=== PATIENT | female | born 1945 | race Caucasian/White ===

== ENCOUNTER 2018-06-16 02:29 | Emergency (ER) | payer MEDICARE, OTHER ==
--- OUTSIDE RECORDS SUMMARY | 2018-06-16 02:45 | XMS REPORT ---
:1945 External Reference #:[id number] Author Organization [employer] [facility] Address [address] [place] [address] Phone [phone] Care Team Providers Name Role Phone Rossy Pavon M.D. Primary Care Physician Unavailable Payers Type Date Identification Numbers Payment Provider Subscriber Medicare Primary Policy Number: [id number] Medicare - NGS Paige Sanz PayID: [id number] [address] [place] [address] Commercial Policy Number: [id number] [employer] Paige Sanz PayID: [id number] [address] [place] [address] Problems Date Description Provider Status Onset: H/O: hypertension Active Onset: 12/19/2016 Blepharitis Corin Smith O.D. Active Onset: 12/19/2016 Internal hordeolum Corin Smith O.D. Active Onset: 12/19/2016 Bilateral age-related nonexudative Corin Smith O.D. Active macular degeneration Onset: 01/16/2017 Tear film insufficiency Corin Smith O.D. Active Onset: Hypercholesterolemia Active Onset: 03/13/2018 Chalazion Dejon Winkler M.D. Active Onset: 03/13/2018 Cyst of eyelid Dejon Winkler M.D. Active Onset: 02/20/2018 Bilateral primary open angle glaucoma Corin Smith O.D. 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 Cigarette Use Never Smoked Cigarettes ETOH Use Consumes 1 glass of wine per day Recreational Drug Use Denies Drug Use Smoking Patient has never smoked Daily Caffeine Consumes on average 1 cup of hot tea per day Daily Caffeine Consumes on average 1 cup of regular coffee on weekends per day Allergies, Adverse Reactions, Alerts Date Description Reaction Status Severity Comments 01/16/2017 Penicillin active 01/16/2017 Sulfa Antibiotics active 01/16/2017 Avapro active 02/27/2018 Latanoprost active 12/19/2016 NKDA inactive Medications Medication Date Status Form Strength Qnty SIG Indications Ordering Provider Neomycin/Polymyxin 03/13 Active Ointment 3.5-29865 3.500 apply a H00.14 Dejon /Dexamethasone -0.1 gm thin strip Cathi, to the left M.D. eye at night for 2 weeks, then discontinue Atenolol 00 Active Tablets 50mg Unknown /0000 Hydrochlorothiazid 0000 Active Tablets 25mg Unknown e /0000 Lisinopril 0000 Active Tablets 20mg Unknown /0000 Vitamin D-1000 00 Active Tablets 1000Unit 1 daily Unknown Maximum Strength /0000 Aspirin Adult Low 00 Active Tablets 81mg daily Unknown Dose /0000 DR Pravastatin Sodium 0000 Active Tablets 10mg Unknown /0000 Preservision Areds Active Capsules Areds 2 1 x per day Unknown 2 Restasis Multidose 02/20 Hx Emulsion 0.05% 16.5m instill 1 H04.123 . l drop twice [place], - a day both O.D. 03/12 eyes Latanoprost 02/20 Hx Solution 0.005% 15ml 1 drop both H40.1131 . eyes every [place], - night O.D. 02/26 Systane 01/15 Hx Solution 0.4-0.3% as needed Unknown /2016 - 03/12 Erythromycin 12/19 Hx Ointment 5mg/GM 1Tube apply thin H01.001 Corin Juarez s strip to Luis, - all four O.D. 07/17 margins every night at bedtime x 4 weeks Systane Overnight Hx Gel 0.3% every night Unknown Therapy Lubricant /0000 at bedtime Eye - 01/15 Results Description No Information Procedures Date CPT Code Description Status 02/27/2018 95751 Est Patient Intermediate Exam Completed 02/20/2018 17648 Scanning Computerized Ophthalmic Diagnostic Imag Completed Posterior Seg On 02/20/2018 00394 Est Patient Comprehensive Exam Completed 01/16/2018 44244 Scanning Computerized Opthalmic Diagnostic Posterior Completed Seg Retina 01/16/2018 69903 Est Patient Comprehensive Exam Completed 01/16/2018 75195 Pachymetry Completed 07/19/2017 07638 Scanning Computerized Opthalmic Diagnostic Posterior Completed Seg Retina 07/19/2017 83617 Est Patient Comprehensive Exam Completed 01/16/2017 77166 Scanning Computerized Opthalmic Diagnostic Posterior Completed Seg Retina 12/19/2016 74543 Est Patient Intermediate Exam Completed 09/07/2014 59608 Est Patient Intermediate Exam Completed 01/07/2013 43174 New Patient Intermediate Exam Completed Encounters Type Date Location Provider CPT E/M Dx Office Visit 03/13/2018 8:00a Jerry Dash MD, Dejon Winkler, 87740 H00.14 pc M.Rufus H02.822 Office Visit 01/16/2017 2:00p Jerry Dash MD, Corin Smith O.D. 00512 H35.3131 pc H04.123 Office Visit 09/11/2014 12:30p Jerry Dash MD, Angelia Landaverde, 87917 373.2 pc O.D. Office Visit 01/21/2013 8:00a Jerry Dash MD, Ayanna Mas O.D. 40960 373.00 pc Plan of Care 03/13/2018 - Dejon Winkler M.D.H00.14 Chalazion left upper eyelidNew Medication:Neomycin/Polymyxin/Dexamethasone 3.5-84312-2.1Comments:Smoking can increase the risk of developing or worsening any eye related disease, as well as affect your overall health. If you are a smoker, we strongly recommend that you quit.If you are not a smoker, we strongly recommend that you do not start. Follow all instructions given by Dr. Winkler. USE WARM COMPRESSES (WASHCLOTH ) FOR 3-5 MINUTES TO BOTH EYES, GENTLY MASSAGE EYE LID WITH WASHCLOTH.I WILL PRESCRIBE AN OINTMENT, USE AT NIGHT BEFORE BED TO THE LEFT EYE. PULL DOWN LOWER EYELID AND APPLY OINTMENT, YOU CAN APPLY IT DIRECTLY TO THE RED SPOT ON LEFT EYELID WELL.Follow up:As scheduled At your next visit, we are not planning to dilate your eyes. However, if you have anychanges in your vision or new symptoms, there are certain situations that require us to dilate your eyes. If Dr. Winkler requests any additional testing, that may require extra time. If you have any questions before your next appointment, please call our office at .H02.822 Cysts of right lower eyelid
--- OUTSIDE RECORDS SUMMARY | 2018-06-16 02:45 | XMS REPORT ---
:1945 External Reference #:[id number] Author Organization [facility] Address [address] [place] [address] Phone [phone] Care Team Providers Name Role Phone Rossy Pavon M.D. Primary Care Physician Unavailable Payers Type Date Identification Numbers Payment Provider Subscriber Medicare Primary Policy Number: [id number] Medicare - NGS Paige Sanz PayID: [id number] [address] [place] [address] Commercial Policy Number: [id number] [employer] [facility] Paige Sanz PayID: [id number] [address] [place] [address] Problems Date Description Provider Status Onset: H/O: [...] bilateral Onset: 07/19/2017 Nuclear senile cataract Corin Smith O.D. 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 Cigarette Use Never [...] Form Strength Qnty SIG Indications Ordering Provider Systane Nighttime 05/28 Active Ointment 3.500 QHS as gm needed Bam Winkler Atenolol Active Tablets 50mg Unknown /0000 Hydrochlorothiazid Active Tablets 25mg Unknown e /0000 Lisinopril 00 Active Tablets 20mg Unknown /0000 Vitamin D-1000 Active Tablets 1000Unit 1 daily Unknown Maximum Strength /0000 Aspirin Adult Low Active Tablets 81mg daily Unknown Dose /0000 Pravastatin Sodium Active Tablets 10mg Unknown /0000 Preservision Areds Active Capsules Areds 2 1 x per day Unknown Metoprolol Active Tablets 25mg Midura, Succinate ER /0000 ER 24HR Brett Kuhn Neomycin/Polymyxin 03/13 Hx Ointment 3.5-93337 3.500 apply a H00.14 Dejon /Dexamethasone -0.1 gm thin strip Cathi - to the left M.D. 03/27 eye at night for 2 weeks, then discontinue Restasis Multidose 02/20 Hx Emulsion 0.05% 16.5m instill 1 H04.123 KSaray l drop twice Luis, - a day both O.D. 03/12 eyes /2017 Latanoprost 02/20 Hx Solution 0.005% 15ml 1 drop both H40.1131 Corin Juarez eyes every Luis, - night O.D. 02/26 Systane 01/15 Hx Solution 0.4-0.3% as needed Unknown /2016 - 03/12 Erythromycin 12/19 Hx Ointment 5mg/GM 1Tube apply thin H01.001 s strip to [place], - all four O.D. 07/17 margins every night at bedtime x 4 weeks Systane Overnight Hx Gel 0.3% every night Unknown Therapy Lubricant /0000 at bedtime Eye - 01/15 Results Description No Information Procedures Date CPT Code Description Status 02/27/2018 16805 Est Patient Intermediate Exam Completed 02/20/2018 93003 Scanning Computerized Ophthalmic Diagnostic Imag Completed Posterior Seg On 02/20/2018 84836 Est Patient Comprehensive Exam Completed 01/16/2018 48980 Scanning Computerized Opthalmic Diagnostic Posterior Completed Seg Retina 01/16/2018 68635 Est Patient Comprehensive Exam Completed 01/16/2018 25185 Pachymetry Completed 07/19/2017 08245 Scanning Computerized Opthalmic Diagnostic Posterior Completed Seg Retina 07/19/2017 51969 Est Patient Comprehensive Exam Completed 01/16/2017 20180 Scanning Computerized Opthalmic Diagnostic Posterior Completed Seg Retina 12/19/2016 54928 Est Patient Intermediate Exam Completed 09/07/2014 42377 Est Patient Intermediate Exam Completed 01/07/2013 22855 New Patient Intermediate Exam Completed Encounters Type Date Location Provider CPT E/M Dx Office Visit 03/13/2018 8:00a Jerry Dash MD, Dejon Winkler, 83937 H00.14 pc M.DSaray H02.822 Office Visit 01/16/2017 2:00p Jerry Dash MD, Corin Smith O.D. 30263 H35.3131 pc H04.123 Office Visit 09/11/2014 12:30p Jerry Dash MD, Angelia Landaverde, 46977 373.2 pc O.D. Office Visit 01/21/2013 8:00a Jerry Dash MD, Ayanna Mas O.D. 63534 373.00 pc Plan of Care 05/29/2018 - Dejon Winkler M.D.H40.1131 Primary open-angle glaucoma, bilateral, mild stageComments:Smoking can increase the risk of developing or worsening any eye related disease, as well as affect your overall health. If you are a smoker, we strongly recommend that you quit.If you are not a smoker, we strongly recommend that you do not start. Your glaucoma is stable at this time.Your eye pressure is within an acceptable range, and your testing does not show any further deterioration at this time. Please continue your treatment.Follow up:6 Month Follow Up DFE, OCT NERVE You can expect to have your eyes dilated at your next visit. If Dr. Winkler orders any additional testing, it may require extra time. We recommend that you bring sunglasses, as dilation drops often make you light sensitive until they wear off. We always recommend youbring someone to drive you home if you are uncomfortable driving with your eyes dilated. If you haveany questions before your next visit, feel free to call our office at .
--- OUTSIDE RECORDS SUMMARY | 2018-06-16 02:45 | XMS REPORT ---
:1945 External Reference #:[id number] Author Organization [facility] Address [address] [place] [address] Phone [phone] Care Team Providers Name Role Phone Rossy Pavon Care Team Information Management Consultant Unavailable Rossy Pavon Primary Care Physician Unavailable Payers Type Date Identification Numbers Payment Provider Subscriber Medicare Primary Effective: Policy Number: Medicare Cecilia Boss 2011 [id number] PayID: [id number] [address] [place] [address] Commercial Effective: 2017 Policy Number: [id number] [facility] [employer] Number: [id number] [address] PayID: [id number] [place] [address] Problems Date Description Provider Status Onset: 11/07/2011 Essential hypertension Monisha Santacruz M.D. Active Onset: 11/07/2011 Hyperlipidemia Monisha Santacruz M.D. Active Onset: 04/10/2012 Impaired fasting glycaemia Monisha Santacruz M.D. Active Onset: 10/22/2012 Benign essential hypertension Rossy Pavon M.D. Active Onset: 10/22/2012 Tear film insufficiency Rossy Pavon M.D. Active Onset: 10/22/2012 Varicose veins of lower extremity Rossy Pavon M.D. Active Onset: 07/27/2015 Type 2 diabetes mellitus Rossy Pavon M.D. Active Onset: 07/27/2015 Vitamin D deficiency Rossy Pavon M.D. Active Onset: 06/14/2018 Onychomycosis Rossy Pavon M.D. Active Family History Date Family Member(s) Problem(s) Comments General No fam hx lung,colon, breast CA. Father due to Auto Accident () - at age 68 Father Hypercholesterolemia Father Hypertension Father Diabetes Mellitus, II Mother due to Alzheimer's () - age 88. Disease Mother Hypertension First Son Good Health First Son [place]. First Daughter Obesity First Daughter lives in [facility]. on Disability. First Brother Hypercholesterolemia First Brother Hypertension First Brother Diabetes Mellitus, II First Sister 76, CVA. HTN, DM. skin cancer. Number of Grandchildren 2: Jackie and Jaun Social History Type Date Description Comments Marital Status Patient is Living Situation Lives with spouse, 19 year old granddaughter lives with them. will be going to college. [employer]. Diet Diet is healthy and well balanced Sleep Typically sleeps 7 hours a night. 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 Current Allergies, Adverse Reactions, Alerts Date Description Reaction Status Severity Comments 08/06/2006 Penicillin active 08/06/2006 Cipro active 08/06/2006 Cephalexin active 08/22/2016 Sulfamethoxazole/Trimethoprim felt sick active 02/20/2017 Macrolides and Ketolides active Medications Medication Date Status Form Strength Qnty SIG Indications Ordering Provider Atenolol 06/14 Active Tablets 50mg 180ta 1 by mouth Rossy Diana /2017 bs twice tea Pavon M.D. Metoprolol 05/04 Active Tablets 25mg 60tab 1 by mouth Brett T. Succinate ER /2017 ER 24HR s bid Bam Camacho Pravastatin 07/04 Active Tablets 10mg 90tab 1 by mouth E78.4 Rajwinder Sodium /2016 s at night. Janeen Salgado Lisinopril 07/05 Active Tablets 20mg 90tab 1 by mouth I10 Rossy Diana s every day Bam Pavon Asa 01/14 Active 81mg PO qod Family /[facility] Areds Two Active 1 po qd Unknown /0000 Vitamin D3 Active Tablets once daily Unknown Metoprolol 08/03 Hx Tablets 50mg 90tab 1/2 tab by Rossy Diana Succinate ER ER 24HR s mouth Librado, - twice M.D. 04/27 Nitrofurantoin 07/04 Hx Capsules 100mg 14cap 1 by mouth N39.0 Rossy Diana Monohyd s twice Librado, - daily M.D. 01/04 Doxycycline 02/20 Hx Capsules 100mg 14cap take one Hyclate s capsule by Alia, - mouth [employer] 04/25 twice a day Phazyme 02/15 Hx Capsules 180mg 60cap 1-2 po s every 8 Alia, - hours prn [employer] 04/25 flat Azithromycin 02/15 Hx Tablets 250mg 6tabs 2 take by mouth Alia, - tabletstod [employer] 02/20 ay, one tab days 2-5 until finished Medrol 02/15 Hx Tablets 4mg 1pack dose-pack as Alia, - instructed [employer] 04/25 Pyridium 09/22 Hx Tablets 100mg 30tab 1 po tid N39.0 s prn Alia, - urinary [employer] 02/14 pain Macrodantin 09/22 Hx Capsules 100mg 10cap 1 by mouth N39.0 Jainne s twice a Alia, - day x 5 [employer] Macrobid 09/22 Hx Capsules 100mg 14cap 1 tab by N39.0 Janine s mouth Alia, - twice a [employer] 02/14 day x 7days Sulfamethoxazole/ 07/11 Hx Tablets 800-160mg 14tab take 1 Trimethoprim s tablet by Alia, - mouth [employer] 08/21 twice a day x 7 days finish all medication Pyridium 07/11 Hx Tablets 100mg 30tab 1 po tid s prn Alia, - urinary [employer] 08/21 pain Clindamycin HCL 06/03 Hx Capsules 300mg 30cap 1 by mouth Rossy L. s three Librado, - times M.D. 07/11 Lisinopril 09/09 Hx Tablets 10mg 90tab Take 1 I10 Rossy L. s Tablet By Librado, - Mouth M.D. 07/05 Every Vitamin D 07/27 Hx Capsules [id number] 12cap take 1 E55.9 Rossy L. (Ergocalciferol) s capsule by Librado, - mouth once M.D. 04/25 weekly 12 weeks. no refills. Hydrochlorothiazi 06/24 Hx Tablets 25mg 90tab take 1 Rossy L. s tablet by Librado, - mouth M.D. 06/14 every (eat a banana daily) Hydrocortisone 03/27 Hx Ointment 2.5% 1unit apply to 692.9 s affected [place], - area twice M.D. 06/24 a day x week then prn Azithromycin 01/06 Hx Tablets 250mg 6tabs 2 tabs by 466.0 Miller Pathak, mouth day M.D. - #1 then 1 03/27 tab by mouth day#2-5 Sulfamethoxazole/ 12/07 Hx Tablets 800-160mg 14tab take 1 599.0 Janine Trimethoprim s tablet by Alia, - mouth [employer] 01/06 twice a day x 7 days finish all medication Avapro 08/25 Hx Tablets 150mg 90tab 1 by mouth Rossy LSaray s every day Eloina Pavon M.DSaray 06/24 Hydrochlorothiazi 08/25 Hx Tablets 12.5mg 100ta 1 by mouth Rossy LSaray bs every day Librado - for fluid M.D. 06/24 Hydrochlorothiazi 07/17 Hx Tablets 25mg 90tab 1 po qd 401.1 Rossy LSaray kim s Eloina Pavon.Rufus 03/27 Avapro 10/23 Hx Tablets 75mg 90tab 1 po qd Rossy LSaray Eloina Cleaning M.D. 08/25 Hydrochlorothiazi 10/22 Hx Capsules 12.5mg 90cap Take One 401.1 Rossy L. s Capsule By Eloina Pavon M.Rufus 07/17 Morning Avapro 07/16 Hx Tablets 300mg 30tab 1 po qd Rossy L. Eloina Cleaning M.D. 10/23 Blood Pressure 07/16 Hx take blood Rossy L. pressure Eloina Pavon 2-3 times M.DSaray 02/27 weekly. Avapro 08/15 Hx Tablets 150mg 90tab 1 tab po Monisha Hooper s qd Eloina Santacruz M.D. 07/16 Atenolol 08/01 Hx Tablets 25mg 90tab take one s tablet by LENCHO Velasquez - mouth once 06/24 daily at bedtime (with 50mg tablet) Folbee 10/04 Hx Tabs 2.5-25-1m 30tab Take One g s Tablet By Eloina Robb M.D. 12/08 Every Ronak Stocking 09/27 Hx 2Pair wear daily Eloina Robb M.D. 12/08 dx: severe varicose veins Avapro 08/06 Hx Tablets 75mg 90tab 2 po q qam Eloina Howell M.D. 08/15 Atenolol 08/06 Hx 1 50mg 90uni 1 po q hs Monisha Hooper Eloina Walsh M.D. 04/12 HCTZ 08/06 Hx 12.5mg 90uni 1 po q am Janine Eloina Calixto M.D. 08/01 Folbee 08/06 Hx Tablets 30tab 1 po qd Janine /2006 Eloina Howell M.D. 10/04 Caltrate 08/06 Hx 600mg 1 PO qd Janine /2006 Eloina Robb M.D. 09/03 Multivitamin 08/06 Hx 0unit 1 PO qd Janine /2006 s Eloina Robb M.D. 12/08 Fish Oil 08/06 Hx 1000mg 1 PO qd Eloina Robb M.D. 01/14 Atenolol 08/06 Hx Tablets 25mg 90tab Take One s Tablet By geoffrey Izquierdo - Mouth Bam 08/01 Morning Atenolol 08/06 Hx Tablets 50mg 180ta take one Rossy Diana ana Pavon - tablet by Bam 01/04 twice daily Womens Daily Hx Tablets Unknown /0000 - 09/03 Immunizations CPT Code Status Date Vaccine Reaction Lot # [id number] Given 09/11/2017 High-Dose, Influenza Virus [id number] Vacccine-fluzone 65 and older 07850 Given 08/22/2016 High-Dose, Influenza Virus [id number] Vacccine-fluzone 65 and older 77847 Given 07/27/2015 Influenza Vac, [place], [place] [address] Given 07/27/2015 Pneumococcal Conjugate Vacc-13 [id number] 87236 Given 08/25/2014 High-Dose, Influenza Virus [id number] Vacccine-fluzone 65 and older 58975 Given 02/27/2014 Tdap Tetanus, W Pertussis [id number] 76833 Given 07/19/2013 Pneumococcal Immunization [id number] Q2037 Given 10/22/2012 Split Influenza Medicare: Fluvirin 83859 Given 10/22/2012 DO Not Use Split Influenza Virus [id number] Vaccine [id number] Given 08/01/2011 Split Influenza Medicare: no reaction noted [id number] Fluzone 91032 Given 08/01/2011 Zostivax no reaction noted [id number] 55601 Given 08/17/2008 DO Not Use Split Influenza Virus [id number] Vaccine Vital Signs Date Vital Result Comment 06/14/2018 BP Systolic 132 mmHg BP Diastolic 70 mmHg Heart Rate 78 /min Body Temperature 98.1 F Height 58.5 inches 4'10.50" Weight 111.00 lb BMI (Body Mass Index) 22.8 kg/m2 01/04/2018 BP Systolic 124 mmHg BP Diastolic 80 mmHg Heart Rate 60 /min Body Temperature 98.4 F Respiratory Rate 16 /min Weight 107.00 lb 09/11/2017 BP Systolic 120 mmHg BP Diastolic 80 mmHg Heart Rate 60 /min Body Temperature 97.9 F Respiratory Rate 18 /min Weight 110.00 lb 07/04/2017 BP Systolic 110 mmHg BP Diastolic 70 mmHg Heart Rate 72 /min Body Temperature 98.8 F Respiratory Rate 18 /min Height 58.5 inches 4'10.50" Weight 105.00 lb BMI (Body Mass Index) 21.6 kg/m2 04/25/2017 BP Systolic 120 mmHg BP Diastolic 80 mmHg Heart Rate 72 /min Body Temperature 98.7 F Respiratory Rate 18 /min Height 58.5 inches 4'10.50" Weight 105.00 lb BMI (Body Mass Index) 21.6 kg/m2 02/15/2017 BP Systolic 162 mmHg BP Diastolic 90 mmHg Heart Rate 78 /min Body Temperature 98.2 F Height 58.5 inches 4'10.50" Weight 107.12 lb BMI (Body Mass Index) 22.0 kg/m2 09/22/2016 BP Systolic 140 mmHg BP Diastolic 82 mmHg Heart Rate 72 /min Body Temperature 98.6 F Respiratory Rate 18 /min Height 58.5 inches 4'10.50" Weight 109.00 lb BMI (Body Mass Index) 22.4 kg/m2 08/22/2016 BP Systolic 130 mmHg BP Diastolic 88 mmHg Heart Rate 66 /min Body Temperature 98.8 F Height 58.5 inches 4'10.50" Weight 109.25 lb BMI (Body Mass Index) 22.4 kg/m2 07/11/2016 BP Systolic 140 mmHg BP Diastolic 90 mmHg Heart Rate 66 /min Body Temperature 97.6 F Respiratory Rate 18 /min Height 58.5 inches 4'10.50" Weight 110.00 lb BMI (Body Mass Index) 22.6 kg/m2 07/05/2016 BP Systolic 164 mmHg BP Diastolic 90 mmHg Heart Rate 68 /min Body Temperature 97.9 F Respiratory Rate 16 /min Height 58.5 inches 4'10.50" Weight 112.00 lb BMI (Body Mass Index) 23.0 kg/m2 06/14/2016 BP Systolic 140 mmHg BP Diastolic 84 mmHg BP Systolic Recheck 180 mmHg BP Diastolic Recheck 100 mmHg Heart Rate 72 /min Body Temperature 98.0 F Respiratory Rate 16 /min Height 58.5 inches 4'10.50" Weight 111.00 lb BMI (Body Mass Index) 22.8 kg/m2 10/14/2015 BP Systolic 138 mmHg BP Diastolic 88 mmHg Heart Rate 68 /min Body Temperature 98.1 F Respiratory Rate 18 /min Height 58.5 inches 4'10.50" Weight 115.00 lb BMI (Body Mass Index) 23.6 kg/m2 09/09/2015 BP Systolic 120 mmHg BP Diastolic 80 mmHg Heart Rate 68 /min Body Temperature 97.9 F Respiratory Rate 18 /min Height 58.5 inches 4'10.50" Weight 114.00 lb BMI (Body Mass Index) 23.4 kg/m2 07/27/2015 BP Systolic 126 mmHg BP Diastolic 80 mmHg Heart Rate 64 /min Body Temperature 97.4 F Respiratory Rate 16 /min Height 58.5 inches 4'10.50" Weight 120.00 lb BMI (Body Mass Index) 24.7 kg/m2 07/08/2015 BP Systolic 158 mmHg BP Diastolic 84 mmHg BP Systolic Recheck 126 mmHg BP Diastolic Recheck 76 mmHg Heart Rate 66 /min Respiratory Rate 16 /min Height 58.5 inches 4'10.50" Weight 119.00 lb BMI (Body Mass Index) 24.4 kg/m2 06/24/2015 BP Systolic 146 mmHg BP Diastolic 74 mmHg Heart Rate 60 /min Body Temperature 97.4 F Respiratory Rate 20 /min Height 58.5 inches 4'10.50" Weight 121.00 lb BMI (Body Mass Index) 24.9 kg/m2 03/27/2015 BP Systolic 156 mmHg BP Diastolic 88 mmHg Heart Rate 66 /min Body Temperature 98.2 F Respiratory Rate 16 /min Height 58.5 inches 4'10.50" Weight 118.50 lb BMI (Body Mass Index) 24.3 kg/m2 01/06/2015 BP Systolic 152 mmHg BP Diastolic 88 mmHg Heart Rate 80 /min Body Temperature 99.9 F Respiratory Rate 20 /min O2 % BldC Oximetry 96 % Height 58.5 inches 4'10.50" Weight 124.00 lb BMI (Body Mass Index) 25.5 kg/m2 12/07/2014 BP Systolic 194 mmHg BP Diastolic 92 mmHg Heart Rate 72 /min Body Temperature 97.8 F Height 58.5 inches 4'10.50" Weight 125.25 lb BMI (Body Mass Index) 25.7 kg/m2 08/25/2014 BP Systolic 120 mmHg BP Diastolic 80 mmHg Heart Rate 68 /min Body Temperature 98.3 F Respiratory Rate 18 /min O2 % BldC Oximetry 58.5 % Height 58.5 inches 4'10.50" Weight 123.00 lb BMI (Body Mass Index) 25.3 kg/m2 06/26/2014 BP Systolic 150 mmHg BP Diastolic 84 mmHg Heart Rate 66 /min Body Temperature 98.3 F Height 58.5 inches 4'10.50" Weight 122.00 lb BMI (Body Mass Index) 25.1 kg/m2 02/27/2014 BP Systolic 160 mmHg BP Diastolic 90 mmHg Heart Rate 60 /min Body Temperature 96.6 F Respiratory Rate 20 /min Height 58.5 inches 4'10.50" Weight 125.00 lb BMI (Body Mass Index) 25.7 kg/m2 07/19/2013 BP Systolic 152 mmHg BP Diastolic 90 mmHg Heart Rate 60 /min Body Temperature 97.9 F Respiratory Rate 16 /min Height 58.75 inches 4'10.75" Weight 126.25 lb BMI (Body Mass Index) 25.7 kg/m2 12/26/2012 BP Systolic 148 mmHg BP Diastolic 90 mmHg Heart Rate 72 /min Height 58.75 inches 4'10.75" Weight 125.00 lb BMI (Body Mass Index) 25.5 kg/m2 10/22/2012 BP Systolic 120 mmHg BP Diastolic 90 mmHg Heart Rate 72 /min Body Temperature 98.2 F Height 58.75 inches 4'10.75" Weight 127.00 lb BMI (Body Mass Index) 25.9 kg/m2 09/03/2012 BP Systolic 176 mmHg BP Diastolic 76 mmHg Heart Rate 66 /min Body Temperature 98.4 F Height 58.75 inches 4'10.75" Weight 132.00 lb BMI (Body Mass Index) 26.9 kg/m2 07/16/2012 BP Systolic 166 mmHg BP Diastolic 92 mmHg Heart Rate 60 /min Body Temperature 98.3 F Height 58.75 inches 4'10.75" Weight 126.00 lb BMI (Body Mass Index) 25.7 kg/m2 04/10/2012 BP Systolic 144 mmHg BP Diastolic 90 mmHg Heart Rate 66 /min Body Temperature 98.8 F Height 58.75 inches 4'10.75" Weight 123.00 lb BMI (Body Mass Index) 25.1 kg/m2 08/15/2011 BP Systolic 150 mmHg BP Diastolic 80 mmHg Heart Rate 62 /min Body Temperature 97.5 F Respiratory Rate 22 /min Height 58.75 inches 4'10.75" Weight 124.00 lb BMI (Body Mass Index) 25.3 kg/m2 08/01/2011 BP Systolic 140 mmHg BP Diastolic 80 mmHg Heart Rate 60 /min Body Temperature 97.7 F Respiratory Rate 20 /min Height 58.75 inches 4'10.75" Weight 120.00 lb BMI (Body Mass Index) 24.4 kg/m2 12/08/2010 BP Systolic 130 mmHg BP Diastolic 90 mmHg Heart Rate 72 /min Body Temperature 97.8 F Respiratory Rate 15 /min Height 58.75 inches 4'10.75" Weight 125.00 lb BMI (Body Mass Index) 25.5 kg/m2 12/08/2009 BP Systolic 150 mmHg BP Diastolic 90 mmHg Heart Rate 66 /min Body Temperature 97.4 F Height 58.75 inches 4'10.75" Weight 123.00 lb BMI (Body Mass Index) 25.1 kg/m2 08/17/2008 BP Systolic 122 mmHg BP Diastolic 82 mmHg Heart Rate 78 /min Respiratory Rate 13 /min Height 58.75 inches 4'10.75" Weight 126.00 lb BMI (Body Mass Index) 25.7 kg/m2 01/11/2008 BP Systolic 142 mmHg BP Diastolic 90 mmHg Heart Rate 60 /min Height 58.75 inches 4'10.75" Weight 121.00 lb BMI (Body Mass Index) 24.6 kg/m2 01/14/2007 BP Systolic 148 mmHg BP Diastolic 80 mmHg Heart Rate 68 /min Body Temperature 97.6 F Height 58.75 inches 4'10.75" Weight 117.00 lb BMI (Body Mass Index) 23.8 kg/m2 10/18/2006 BP Systolic 150 mmHg BP Diastolic 92 mmHg Heart Rate 68 /min Height 58.75 inches 4'10.75" Weight 117.00 lb BMI (Body Mass Index) 23.8 kg/m2 08/06/2006 BP Systolic 142 mmHg BP Diastolic 72 mmHg Heart Rate 76 /min Height 58.75 inches 4'10.75" Weight 113.00 lb BMI (Body Mass Index) 23.0 kg/m2 Results Test Date Test Result H/L Range Note Laboratory test finding 06/14/2018 B12 <pending> 230-1050 Laboratory test finding 06/14/2018 Folates (Folic Acid), <pending> Serum Laboratory test finding 06/14/2018 Hemoglobin A1c (Fma) 5.2% % 4.1-5.7 Laboratory test finding 01/04/2018 Hemoglobin A1c (Fma) 5.3 % 4.1-5.7 Comprehensive Metabolic 09/03/2017 Sodium 137 mEq/L 134-149 Prof Potassium 3.9 mEq/L 3.6-5.5 Chloride 97 mEq/L 94-112 Carbon Dioxide 25 mEq/L 21-32 Glucose 118 mg/dL High 70-105 1 BUN 15 mg/dL 6-26 Creatinine 0.5 mg/dL Low 0.6-1.4 2 BUN/Creat Ratio 30.0 CALC 8.0-36.0 Calcium 9.2 mg/dL 8.6-10.2 Total Protein 7.4 g/dL 6.4-8.3 Albumin 4.5 g/dL 3.8-5.5 Globulin 2.9 g/dL 2.0-4.8 A/G Ratio 1.6 CALC 0.6-2.3 Alk. Phosphatase 39 U/L 30-110 Alt (SGPT) 27 U/L 7-35 Ast (Sgot) 34 U/L 5-34 Total Bilirubin 0.7 mg/dL 0.2-1.3 GFR Non- >60 ml/min/1.73m^ >=60 GFR >60 ml/min/1.73m^ >=60 Lipid Profile 09/03/2017 Cholesterol 207 mg/dL High 120-200 Triglycerides 90 mg/dL 30-200 HDL Cholesterol 67 mg/dL 30-85 LDL (Calculated) 122 CALC 0-129 VLDL Cholesterol 18 mg/dL 0-50 HDL Risk Factor 3.1 CALC 0.0-4.4 Urine Culture Routine 07/04/2017 Urine Culture, Routine Final report 3 , 4 Result 1 Escherichia coli 3, 5 Antimicrobial Susceptibility See Comment: 3, 6 Ua - Micro (Fma) 07/04/2017 Appearance cloudy Color yellow Glucose, Urine (Fma/CMC/CTX) neg Bilirubin neg Ketones neg SP Grav 1.020 Blood mod PH 6.0 Protein ssa=1+ Urobil 0.2 Nitrite neg Leukocytes (Fma/CMC/Centrex) large Hyaline - /Lpf Granular - /Lpf WBC (Fma,Centrex) >100 RBC 10-12 Mucus - /Lpf Epith rare /Lpf Bacteria 2+ /Hpf Amorphous - /Lpf Crystals, Fluid (Fma/CMC/CTX) - Z#Comments - Complete Blood Count 06/27/2017 WBC 6.2 x10^3/UL 3.6-9.6 RBC 5.20 x10^6/UL 3.90-5.70 HGB 15.7 g/dL 12.1-17.2 HCT 47 % 36-50 MCV 89.0 fL 82.2-97.4 MCH 30.2 pg 27.6-33.3 MCHC 33.8 g/dL 33.0-35.5 RDW 14.0 % High 11.6-13.7 PLT 324 x10^3/UL 150-400 MPV 7.1 fL Low 7.4-10.4 Gran # 3.7 x10^3/UL 1.5-7.2 Lymph# 2.1 x10^3/UL 0.7-4.9 Greenlee# 0.4 x10^3/UL 0.1-0.9 Gran % 58.5 % 42.2-75.2 Lymph % 34.8 % 20.5-51.1 Greenlee% 6.7 % 1.7-9.3 Comprehensive Metabolic Prof 06/27/2017 Sodium 133 mEq/L Low 134-149 7 Potassium 4.1 mEq/L 3.6-5.5 Chloride 94 mEq/L 94-112 Carbon Dioxide 24 mEq/L 21-32 Glucose 116 mg/dL High 70-105 BUN 16 mg/dL 6-26 Creatinine 0.5 mg/dL Low 0.6-1.4 8 BUN/Creat Ratio 32.0 CALC 8.0-36.0 Calcium 9.6 mg/dL 8.6-10.2 Total Protein 7.7 g/dL 6.4-8.3 Albumin 4.5 g/dL 3.8-5.5 Globulin 3.2 g/dL 2.0-4.8 A/G Ratio 1.4 CALC 0.6-2.3 Alk. Phosphatase 45 U/L 30-110 Alt (SGPT) 11 U/L 7-35 Ast (Sgot) 21 U/L 5-34 Total Bilirubin 0.9 mg/dL 0.2-1.3 GFR Non- >60 ml/min/1.73m^ >=60 GFR >60 ml/min/1.73m^ >=60 Laboratory test finding 06/27/2017 Hemoglobin A1c (Fma) 5.2 % 4.1-5.7 Laboratory test finding 06/27/2017 TSH 1.94 mIU/L 0.50-6.00 Lipid Profile 06/27/2017 Cholesterol 258 mg/dL High 120-200 Triglycerides 97 mg/dL 30-200 HDL Cholesterol 81 mg/dL 30-85 LDL (Calculated) 158 CALC High 0-129 VLDL Cholesterol 19 mg/dL 0-50 HDL Risk Factor 3.2 CALC 0.0-4.4 Ua - Micro (Fma) 09/22/2016 Appearance clear Color yellow Glucose, Urine (Fma/CMC/CTX) neg Bilirubin neg Ketones neg SP Grav 1.020 Blood moderate PH 6.5 Protein trace: ssa Urobil 0.2 Nitrite positive Leukocytes (Fma/CMC/Centrex) moderate Hyaline - /Lpf Granular - /Lpf WBC (Fma,Centrex) >75 RBC 8-10 Epith few /Lpf Bacteria 1+ /Hpf Urine Culture Routine 09/22/2016 Urine Culture, Routine Final report 9 , 10 Result 1 Escherichia coli 9, 11 Antimicrobial Susceptibility See Comment: 9, 12 Laboratory test finding 07/11/2016 PDF [id number] SEE IMAGE 13 Ua - Micro (Fma) 07/11/2016 Appearance CLEAR Color YELLOW Glucose, Urine (Fma/CMC/CTX) NEG Bilirubin NEG Ketones NEG SP Grav 1.015 Blood MOD PH 7.0 Protein 1+ Urobil 0.2 Nitrite NEG Leukocytes (Fma/CMC/Centrex) MOD Hyaline - /Lpf Granular - /Lpf WBC (Fma,Centrex) 20-25 RBC 3-5 Mucus - /Lpf Epith OCC /Lpf Bacteria 1+ /Hpf Amorphous - /Lpf Crystals, Fluid (Fma/CMC/CTX) - Urine Culture Routine 07/11/2016 Urine Culture, Routine Final report 13 , 14 Result 1 See Comment: 13, 15 Antimicrobial Susceptibility See Comment: 13, 16 Laboratory test finding 06/14/2016 Hemoglobin A1c (Fma) 5.7 % 4.1-5.7 Comprehensive Metabolic Prof 07/14/2015 Sodium 135 mEq/L 134-149 Potassium 3.8 mEq/L 3.6-5.5 Chloride 97 mEq/L 94-112 Carbon Dioxide 31 mEq/L 21-32 Glucose 128 mg/dL High 70-105 BUN 13 mg/dL 6-26 Creatinine 0.6 mg/dL 0.6-1.4 BUN/Creat Ratio 21.7 CALC 8.0-36.0 Calcium 9.3 mg/dL 8.6-10.2 Total Protein 7.2 g/dL 6.4-8.3 Albumin 4.4 g/dL 3.8-5.5 Globulin 2.8 g/dL 2.0-4.8 A/G Ratio 1.6 CALC 0.6-2.3 Alk. Phosphatase 44 U/L 30-110 Alt (SGPT) 9 U/L 7-35 Ast (Sgot) 18 U/L 5-34 Total Bilirubin 0.7 mg/dL 0.2-1.3 GFR Non- >60 ml/min/1.73m^ >=60 GFR >60 ml/min/1.73m^ >=60 Laboratory test finding 07/14/2015 Hemoglobin A1c 5.3 % 4.1-5.7 (Fma/CMC,CX) Lipid Profile 07/14/2015 Cholesterol 238 mg/dL High 120-200 Triglycerides 120 mg/dL 30-200 HDL Cholesterol 65 mg/dL 30-85 LDL (Calculated) 149 CALC High 0-129 VLDL Cholesterol 24 mg/dL 0-50 HDL Risk Factor 3.7 CALC 0.0-4.4 Complete Blood Count 07/14/2015 WBC 5.9 x10^3/UL 3.6-9.6 RBC 4.74 x10^6/UL 3.90-5.70 HGB 14.7 g/dL 12.1-17.2 HCT 43 % 36-50 MCV 91.0 fL 82.2-97.4 MCH 30.9 pg 27.6-33.3 MCHC 34.2 g/dL 33.0-35.5 RDW 13.1 % 11.6-13.7 PLT 309 x10^3/UL 150-400 MPV 6.9 fL Low 7.4-10.4 Gran # 3.8 x10^3/UL 1.5-7.2 Lymph# 1.7 x10^3/UL 0.7-4.9 Greenlee# 0.4 x10^3/UL 0.1-0.9 Gran % 61.9 % 42.2-75.2 Lymph % 29.7 % 20.5-51.1 Greenlee% 8.4 % 1.7-9.3 Laboratory test finding 07/14/2015 Vitamin D25 25 Low 30-100 17 Laboratory test finding 06/24/2015 Free T4 1.20 ng/dL 0.75-1.54 TSH 1.90 mIU/L 0.50-6.00 Ua - Micro ([facility]) 12/07/2014 Appearance CLEAR Color YELLOW Glucose, Urine (a/CMC/CTX) NEG Bilirubin NEG Ketones NEG SP Grav 1.005 Blood SMALL PH 6.0 Protein NEG Urobil 0.2 Nitrite NEG Leukocytes (a/[facility]/Centrex) LARGE WBC ([facility],Centrex) 35-40 RBC 6-7 Bacteria TRACE /Hpf Lipid Profile 05/04/2014 Cholesterol 223 mg/dL High 120-200 Triglycerides 111 mg/dL 30-200 HDL Cholesterol 56 mg/dL 30-85 LDL (Calculated) 145 CALC High 0-129 VLDL Cholesterol 22 mg/dL 0-50 HDL Risk Factor 4.0 CALC 0.0-4.4 Laboratory test finding 05/04/2014 Hemoglobin A1c (a/[facility],CX) 5.6 % 4.1- 5.7 Ua - Micro ([facility]) 02/27/2014 Appearance clear Color yellow Glucose - Bilirubin - Ketones - SP Grav 1.015 Blood Trace-intact PH 6.0 Protein - Urobil 0.2 Nitrite - Leukocytes (a/CMC/Centrex) trace Hyaline - /Lpf Granular - /Lpf WBC (a,Centrex) 1-2 RBC 0-1 Mucus - /Lpf Epith rare /Lpf Bacteria rare /Hpf Amorphous - /Lpf Crystals, Fluid (Fma/CMC/CTX) - Z#Comments - CBC Electronic ([facility]) 07/19/2013 WBC 5.8 3.6-9.6 RBC 4.46 3.90-5.70 Hemoglobin (Fma/CMC/CTX) 13.6 g/dL 12.1 - 17.2 Hematocrit (Fma/CMC/CTX) 40.8 % 36.1 - 50.3 Platelets 240 10^3/ul 150-400 Lymph% 32.4 20.5-51.1 Mixed% 5.9 Neutrophils % 61.7 Mean Corpuscular Vol 91 82.2-97.4 Mean Corpuscular Hemoglobin 30.4 27.6-33.3 Mean Corpuscular Hemo Concen 33.3 32.0-36.0 RDW 13.9 High 11.6-13.7 Mean Platelet Volume 7.2 6.5-11.0 Comprehensive Metabolic Prof 07/19/2013 Albumin 4.6 g/dL 3.8-5.5 Alk. Phos. 39 U/L 30-110 Alt (SGPT) 10 U/L 7-35 Ast (Sgot) 20 U/L 5-34 BUN 20 mg/dL 6-26 Calcium 10.0 mg/dL 8.6-10.2 Chloride 102 mEq/L 94-112 Creatinine 0.7 mg/dL 0.6-1.4 Carbon Dioxide 28 mEq/L 21-32 Glucose 115 mg/dL High 70-105 Sodium 138 mEq/L 134-149 Total Bilirubin 1.0 mg/dL 0.2-1.3 Total Protein 7.5 g/dL 6.3-8.1 Potassium 4.0 mEq/L 3.6-5.5 Globulin 2.9 g/dL 2.0-4.8 A/G Ratio 1.6 Calc 0.6-2.3 BUN/Creat Ratio 26.3 Calc 8.0-36.0 Lipid Profile 07/19/2013 Cholesterol 274 mg/dL High 120-200 HDL 60 mg/dL 30-85 Triglycerides 108 mg/dL 30-200 HDL Risk Factor 4.5 CALC High 0.0-4.4 LDL (Calculated) 192 CALC High 0-129 VLDL (Calculated) 22 mg/dL 0-50 Laboratory test finding 07/19/2013 TSH 1.85 mIU/L 0.50-6.00 Laboratory test finding 07/19/2013 Urine Microalbumin (Fma) <5.0 Hemoglobin A1c (Fma/CMC,CX) 5.7 % 4.1-5.7 Laboratory test finding 12/26/2012 Sed Rate (Fma/CMC/Centrex) 12mm CBC Electronic (a) 12/26/2012 WBC 5.7 3.6-9.6 RBC 4.62 3.90-5.70 Hemoglobin (Fma/CMC/CTX) 14.3 g/dL 12.1 - 17.2 Hematocrit (Fma/CMC/CTX) 41.7 % 36.1 - 50.3 Platelets 252 10^3/ul 150-400 Lymph% 41.2 20.5-51.1 Mixed% 7.2 Neutrophils % 51.6 Mean Corpuscular Vol 90 82.2-97.4 Mean Corpuscular Hemoglobin 30.8 27.6-33.3 Mean Corpuscular Hemo Concen 34.2 32.0-36.0 RDW 12.1 11.6-13.7 Mean Platelet Volume 7.0 6.5-11.0 Marylu Panel--LD (Ctx) 12/26/2012 Antinuclear Abs, Ifa Negative 18 Rheumatoid Arth Factor 9.1 IU/mL 0.0-13.9 Anti Dsdna Antibodies <1 IU/mL 0-9 19 Hla B27 Disease Assoc. Negative 20 Antiextractable Nuclear Ag 12/26/2012 STEAM OVEN OPERATOR Antibodies <0.2 AI 0.0-0.9 Layton Antibodies <0.2 AI 0.0-0.9 Sjogren's AB Anti Ssa/SSB 12/26/2012 Sjogren's Anti-SS-A <0.2 AI 0.0-0.9 Sjogren's Anti-SS-B <0.2 AI 0.0-0.9 Lipid Profile 04/10/2012 Cholesterol 222 mg/dL High 120-200 HDL 67 mg/dL 30-85 Triglycerides 72 mg/dL 30-200 HDL Risk Factor 3.3 CALC 0.0-4.0 LDL (Calculated) 141 CALC High 0-129 VLDL (Calculated) 14 mg/dL 0-50 Comprehensive Metabolic Prof 04/10/2012 Albumin 4.4 g/dL 3.8-5.5 Alk. Phos. 40 U/L 30-110 Alt (SGPT) 11 U/L 7-35 Ast (Sgot) 21 U/L 5-34 BUN 17 mg/dL 6-26 Calcium 9.0 mg/dL 8.6-10.2 Chloride 98 mEq/L 94-112 Creatinine 0.7 mg/dL 0.6-1.4 Carbon Dioxide 26 mEq/L 21-32 Glucose 102 mg/dL 70-105 Sodium 138 mEq/L 134-149 Total Bilirubin 0.8 mg/dL 0.2-1.3 Total Protein 6.8 g/dL 6.3-8.1 Potassium 3.7 mEq/L 3.6-5.5 Globulin 2.4 g/dL 2.0-4.8 A/G Ratio 1.8 Calc 0.6-2.2 BUN/Creat Ratio 25.6 Calc 8.0-36.0 Comprehensive Metabolic Prof 12/29/2010 Albumin 4.5 g/dL 3.8-5.5 Alk. Phos. 39 U/L 30-110 Alt (SGPT) 10 U/L 7-35 Ast (Sgot) 18 U/L 5-34 BUN 24 mg/dL 6-26 Calcium 9.3 mg/dL 8.6-10.2 Chloride 105 mEq/L 94-112 Creatinine 0.7 mg/dL 0.6-1.4 Carbon Dioxide 26 mEq/L 21-32 Glucose 104 mg/dL 70-105 Sodium 140 mEq/L 134-149 Total Bilirubin 0.6 mg/dL 0.2-1.3 Total Protein 6.9 g/dL 6.3-8.1 Potassium 4.1 mEq/L 3.6-5.5 Globulin 2.4 g/dL 2.0-4.8 A/G Ratio 1.9 Calc 0.6-2.2 BUN/Creat Ratio 37.3 Calc High 8.0-36.0 Lipid Profile 12/29/2010 Cholesterol 242 mg/dL High 120-200 HDL 58 mg/dL 30-85 Triglycerides 100 mg/dL 30-200 HDL Risk Factor 4.2 CALC High 0.0-4.0 LDL (Calculated) 164 CALC High 0-129 VLDL (Calculated) 20 mg/dL 0-50 Laboratory test finding 12/29/2010 TSH 2.87 mIU/L 0.50-6.00 CBC Electronic (a) 12/29/2010 WBC 5.4 3.6-9.6 RBC 4.27 3.90-5.70 Hemoglobin (Fma/CMC/CTX) 13.3 g/dL 12.1 - 17.2 Hematocrit (Fma/CMC/CTX) 38.6 % 36.1 - 50.3 Platelets 226 10^3/ul 150-400 Lymph% 32.3 20.5-51.1 Mixed% 5.1 Neutrophils % 62.6 Mean Corpuscular Vol 91 82.2-97.4 Mean Corpuscular Hemoglobin 31.1 27.6-33.3 Mean Corpuscular Hemo Concen 34.4 32.0-36.0 RDW 12.2 11.6-13.7 Mean Platelet Volume 8.5 6.5-11.0 Ua - Micro (Fma) 12/08/2010 Appearance CLEAR Color YELLOW Glucose NEG Bilirubin NEG Ketones NEG SP Grav 1.025 Blood MODERATE PH 5.0 Protein NEG Urobil 0.2 Nitrite NEG Leukocytes (Fma/CMC/Centrex) MODERATE Hyaline - /Lpf Granular - /Lpf WBC (Fma,Centrex) 10-15 RBC 3-5 Mucus - /Lpf Epith OCC /Lpf Bacteria 1+ /Hpf Amorphous - /Lpf Crystals, Fluid (Fma/CMC/CTX) - Z#Comments - Laboratory test 12/08/2010 Thin Prep SEE NOTE 21 finding W/HPV(Lsil/CESILIA/Asc) Laboratory test 12/08/2009 TSH 1.87 mIU/L 0.50-6.0 finding 0 Lipid Profile 12/08/2009 Cholesterol 235 mg/dL High 120-200 22 HDL 70 mg/dL 30-85 Triglycerides 90 mg/dL 30-200 HDL Risk Factor 3.4 CALC Low 4.2-7.0 LDL (Calculated) 147 CALC High 0-129 VLDL (Calculated) 18 mg/dL 0-50 Comprehensive Metabolic Prof 12/08/2009 Albumin 4.7 g/dL 3.8-5.5 Alk. Phos. 39 U/L 30-110 Alt (SGPT) 10 U/L 7-35 Ast (Sgot) 20 U/L 5-34 BUN 19 mg/dL 6-26 Calcium 9.7 mg/dL 8.6-10.2 Chloride 103 mEq/L 94-112 Creatinine 0.7 mg/dL 0.6-1.4 Carbon Dioxide 27 mEq/L 21-32 Glucose 102 mg/dL 70-105 Sodium 141 mEq/L 134-149 Total Bilirubin 0.7 mg/dL 0.2-1.3 Total Protein 7.4 g/dL 6.3-8.1 Potassium 4.1 mEq/L 3.6-5.5 Globulin 2.7 g/dL 2.0-4.8 A/G Ratio 1.7 Calc 0.6-2.2 BUN/Creat Ratio 29.3 Calc 8.0-36.0 Complete Blood Count 12/08/2009 WBC 7.0 x10^3/uL 3.6-9.6 Gran# 5.0 x10^3/uL 1.5-7.2 Gran% 71.8 % 42.2-75.2 HCT 43 % 36-50 HGB 14.9 g/dL 12.1-17.2 Lymph# 1.6 x10^3/uL 0.7-4.9 Lymph% 22.5 % 20.5-51.1 MCH 31.3 pg 27.6-33.3 MCV 90.1 fL 82.2-97.4 MCHC 34.7 g/dL 33.0-35.5 Mo# 0.4 x10^3/uL 0.1-0.9 Mo% 5.7 % 1.7-9.3 MPV 8.7 fL 7.4-10.4 PLT 229 x10^3/uL 150-400 RBC 4.75 x10^6/uL 3.90-5.70 RDW 13.2 % 11.6-13.7 Laboratory test finding 08/17/2008 Thin Prep W/HPV(Lsil/CESILIA/Asc) SEE NOTE 23 Ua - Micro (Fma) 08/17/2008 Appearance CLEAR Color YELLOW Glucose NEG Bilirubin NEG Ketones NEG SP Grav 1.020 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 Phos. 32 U/L 30-110 25 Alt (SGPT) 11 U/L 7-35 25 Ast (Sgot) 22 U/L 5-34 25 BUN 17 mg/dL 6-26 25 Calcium 9.7 mg/dL 8.6-10.2 25 Chloride 98 mEq/L 94-112 25 Creatinine 0.8 mg/dL 0.6-1.4 25 Carbon Dioxide 30 mEq/L 21-32 25 Glucose 108 mg/dL High 70-105 25 Sodium 138 mEq/L 134-149 25 Total Bilirubin 0.8 mg/dL 0.2-1.3 25 Total Protein 7.6 g/dL 6.3-8.1 25 Potassium 4.0 mEq/L 3.6-5.5 25 Globulin 3.3 g/dL 2.0-4.8 25 A/G Ratio 1.3 Calc 0.6-2.2 25 BUN/Creat Ratio 20.2 Calc 8.0-36.0 25 Lipid Profile 01/01/2008 Cholesterol 218 mg/dL High 120-200 25 HDL 70 mg/dL 30-85 25 Triglycerides 87 mg/dL 30-200 25 HDL Risk Factor 3.1 CALC Low 4.2-7.0 25 LDL (Calculated) 131 CALC High 0-129 25 VLDL (Calculated) 17 mg/dL 0-50 25 Complete Blood Count 01/01/2008 WBC 6.3 x10^3/u 3.6-9.6 25 Gran# 4.0 x10^3/u 1.5-7.2 25 Gran% 63.9 % 42.2-75.2 25 HCT 44 % 36-50 25 HGB 14.7 g/dL 12.1-17.2 25 Lymph# 2.0 x10^3/u 0.7-4.9 25 Lymph% 31.2 % 20.5-51.1 25 MCH 32.1 pg 27.6-33.3 25 MCV 94.7 fL 82.2-97.4 25 MCHC 33.9 g/dL 33.0-35.5 25 Mo# 0.3 x10^3/u 0.1-0.9 25 Mo% 4.9 % 1.7-9.3 25 MPV 8.6 fL 7.4-10.4 25 PLT 264 x10^3/u 150-400 25 RBC 4.59 x10^6/u 3.90-5.70 25 RDW 12.5 % 11.6-13.7 25 CBC With Electronic Diff 11/08/2006 White Blood Count 7.1 CUMM 4.8-10.8 26 Abs Basophils 0 0-0.2 26 Abs Eosinophils 0.1 0-0.6 26 Absolute Neutrophil Count 4.1 1.5-7.7 26 Abs Lymphs 2.3 1.0-4.8 26 Abs Mononuclear 0.6 0-0.8 26 Basophil % 0.4 % 0-2 26 Hematocrit 40 % 35-47 26 Hemoglobin 13.9 g/dL 12.0-16.0 26 Eosinophil % 1.1 % 0-6 26 Gran % 57.8 % 38-83 26 Lymph % 32.3 % 20-45 26 Mean Corpuscular HGB Cone 35 g/dL 32-36 26 Mean Corpuscular Hemoglob 32 pg High 27-31 26 Mean Corpuscular Volume 91 um3 79-97 26 Mean Platelet Volume 8.5 um3 7.4-10.4 26 Mononuclear % 8.4 % 1-9 26 Platelet Count 274 CUMM 150-450 26 Red Cell Count 4.37 CUMM 4.2-5.4 26 Redcell Distribution WDTH 13 % 10.5-15 26 Laboratory test finding 11/08/2006 BUN 18 mg/dL 6-24 26 Creatinine 11/08/2006 One Over Creatinine 1.11 26 Creatinine 0.9 mg/dL 0.5-1.4 26 Laboratory test finding 11/08/2006 Glucose 86 mg/dL 70-105 26 Electrolytes 11/08/2006 Anion Gap 6.0 mmol/L 2-11 26, 27 Chloride 100 mmol/L Low 101-111 26 Co2 (Carbon Dioxide) 30.0 mmol/L 22-32 26 Potassium 3.6 mmol/L 3.5-5.0 26 Sodium 136 mmol/L 135-145 26 1 consistent w/ previous results 2 consistent w/ previous results 3 SRC:<Blank> 1urine vacutai ner 4 Source of Specimen: <Blank> 1urine vacutai 5 Escherichia coli Source of Specimen: <Blank> 1urine vacutai 25,000-50,000 colony forming units per mL Cefazolin <=4 ug/mL Cefazolin with an KEKE <=16 predicts susceptibility to the oral agents cefaclor, cefdinir, cefpodoxime, cefprozil, cefuroxime, cephalexin, and loracarbef when used for therapy of uncomplicated urinary tract infections due to E. coli, Klebsiella pneumoniae, and Proteus mirabilis. 6 Source of Specimen: <Blank> 1urine vacutai S=Susceptible; I=Intermediate; R=Resistant P=Positive; N=Negative MICS are expressed in micrograms per mL Antibiotic RSLT#1 RSLT#2 RSLT#3 RSLT#4 Amoxicillin/Clavulanic Acid S Ampicillin S Cefepime S Ceftriaxone S Cefuroxime I Cephalothin R Ciprofloxacin S Ertapenem S Gentamicin S Imipenem S Levofloxacin S Nitrofurantoin S Piperacillin S Tetracycline S Tobramycin S Trimethoprim/Sulfa S 7 RESULTS VERIFIED BY REPEAT ANALYSIS 8 RESULTS VERIFIED BY REPEAT ANALYSIS 9 SRC:urine 1 virk urine vac utainer 10 Source of Specimen: urine 1 virk urine vac 11 Escherichia coli Source of Specimen: urine 1 virk urine vac Greater than 100,000 colony forming units per mL 12 Source of Specimen: urine 1 vrik urine vac S=Susceptible; I=Intermediate; R=Resistant P=Positive; N=Negative MICS are expressed in micrograms per mL Antibiotic RSLT#1 RSLT#2 RSLT#3 RSLT#4 Amoxicillin/Clavulanic Acid S Ampicillin S Cefepime S Ceftriaxone S Cefuroxime S Cephalothin I Ciprofloxacin S Ertapenem S Gentamicin S Imipenem S Levofloxacin S Nitrofurantoin S Piperacillin S Tetracycline S Tobramycin S Trimethoprim/Sulfa S 13 SRC:URINE 1URINE VACUTAINE R 14 Source of Specimen: URINE 1URINE VACUTAINE 15 Source of Specimen: URINE 1URINE VACUTAINE Escherichia coli, identified by an automated biochemical system. 10,000-25,000 colony forming units per mL 16 Source of Specimen: URINE 1URINE VACUTAINE S=Susceptible; I=Intermediate; R=Resistant P=Positive; N=Negative MICS are expressed in micrograms per mL Antibiotic RSLT#1 RSLT#2 RSLT#3 RSLT#4 Amoxicillin/Clavulanic Acid S Ampicillin S Cefepime S Ceftriaxone S Cefuroxime S Cephalothin S Ciprofloxacin S Ertapenem S Gentamicin S Imipenem S Levofloxacin S Nitrofurantoin S Piperacillin S Tetracycline S Tobramycin S Trimethoprim/Sulfa S 17 FASTING 18 Negative <1:80 Borderline 1:80 Positive >1:80 19 Negative <5 Equivocal 5 - 9 Positive >9 20 HLA-B*27 Negative . This test was performed using PCR (Polymerase Chain Reaction)/SSOP (Sequence Specific Oligonucleotide Probes) technique. SBT (Sequence Based Typing) and/or SSP (Sequence Specific Primers) may be used as supplemental methods when necessary. Please contact [facility] Customer Service at if you have any questions. . Director of [facility] Laboratory Dr Rene Watson, PhD [address]. DEPARTMENT OF PATHOLOGY or Extension [address] [facility] REPORT PATIENT: HI BOSS : 1945 AGE: 65 Y SEX: F ACCT: [id number] PROCEDURE DATE: 12/08/2010 DATE RECEIVED: 12/09/2010 REQUESTING PHYSICIAN: JANINE ROBB MD [place] [facility] [id number] PATIENT DATA: [id number] SPECIMEN SUBMITTED: * * (HPVII) THIN PREP W/HPV (LSIL/ASC/CESILIA) * * ENDOCERVICAL RELEVANT HISTORY: : 2 Prev.normal: 08/2008 Para: 2 SPECIMEN ADEQUACY SATISFACTORY FOR EVALUATION. THE PRESENCE OF TRANSFORMATION ZONE COMPONENT CANNOT BE DETERMINED DUE TO ATROPHIC CHANGES. GENERAL CATEGORIZATION NEGATIVE FOR INTRAEPITHELIAL LESIONS OR MALIGNANCY ADDITIONAL COPIES SENT TO: Screened/Rescreened Electronically Signed Sign Out Date/Time: by: by: THOMAS PINEDA, 12/12/2010 12:49 CT(ASCP) Thin Prep Pap tests are examined with an FDA-approved location-guidance system (70108). Performed @ [facility] [address] [place] [id number] 22 result sarah'd [address]. DEPARTMENT OF PATHOLOGY or Extension [address] [facility] REPORT PATIENT: HI BOSS : 1945 AGE: 63 Y SEX: F ACCT: [id number] PROCEDURE DATE: 08/17/2008 DATE RECEIVED: 08/18/2008 REQUESTING PHYSICIAN: JANINE ROBB MD [place] [facility] [place]. [id number] PATIENT DATA: [id number] SPECIMEN SUBMITTED: * * (HPVII) THIN PREP W/HPV (LSIL/ASC/CESILIA) * * ENDOCERVICAL RELEVANT HISTORY: Menopause: Y Comment: LMP: OVER 10 YEARS AGO SPECIMEN ADEQUACY SATISFACTORY FOR EVALUATION. THE PRESENCE OF TRANSFORMATION ZONE COMPONENT CANNOT BE DETERMINED DUE TO ATROPHIC CHANGES. GENERAL CATEGORIZATION NEGATIVE FOR INTRAEPITHELIAL LESIONS OR MALIGNANCY ADDITIONAL COPIES SENT TO: Screened/Rescreened by: Electronically Signed by: HÉCTOR FORD(ASCP) Signed Date and Time: 08/20/2008 13:54 Thin Prep Pap tests are examined with an FDA-approved location-guidance system (74784). Performed @ [facility], [facility] [address] [place] [address] 24 ---- RUN DATE: 01/24/08 [facility] LIVE PAGE 1 RUN TIME: 1527 Specimen Inquiry RUN USER: INTERFACE [id number] HI BOSS 63/F <REG REF 01/21> ([id number]) [facility], Christiano Lewis -- Spec[id number] [facility] Spec Date: 01/22/[address]: Nolan fritz MD Spec Type: SURGICAL P Received: 01/23/08 Copies to: Janine hester MD SPECIMEN EXCISIONAL BIOPSY LESION LEFT NOSE HISTORY PRE-OP DIAGNOSIS: Pigmented lesion CLINICAL INFORMATION: Increase in size, bleeds GROSS DESCRIPTION The specimen is received in formalin labelled Hi Umu, Lesion Left Nose, and consists of an unoriented ellipse measuring 0.6 x 0.3 x 0.3 cm. The specimen is inked, serially sectioned and submitted entirely, one cassette. DIAGNOSIS Skin, left nose, biopsy: Hemangioma. Signed Electronically by: NOLAN WEI MD 01/24/08 1527 -- -- DEPARTMENT OF PATHOLOGY, [address] [place] [address] [facility] Permit #[id number] Nolan Wei M.D. Director of Laboratories -- 25 FASTING 26 SDS 11/15/06 27 Anion gap measurement may be of limited value in the presence of any alkalosis, especially in a combined acid base disorder. . Procedures Date CPT Code Description Status Comment 02/04/2018 Mammogram Completed 01/04/2018 79427 Finger Or Heel Stick Completed 06/14/2016 81581 Finger Or Heel Stick Completed 01/06/2015 61816 Pulse Oximetry Completed 08/25/2014 22538 Pulse Oximetry Completed 06/26/2014 64766 Electrocardiogram Complete Completed 05/22/2014 Colonoscopy Completed 03/06/2014 41875 Dxa Bone Density Vertebarl FX Completed Assessment 03/06/2014 10463 Dxa Bone Density Study One Or Completed More Sites Axial Skeleton 03/06/2014 Mammogram Completed 02/10/2014 Bone Mineral Density Test Completed normal bone density. 01/02/2011 Mammogram Completed 02/06/2008 Mammogram Completed 08/14/2006 Mammogram Completed Encounters Type Date Location Provider CPT E/M Dx Office Visit 01/04/2018 9:40a [facility] Rossy Pavon M.D. 01258 I10 E78.4 R73.01 M15.0 Z12.31 Office Visit 09/11/2017 2:20p [facility] Rossy Pavon M.D. 95836 I10 E78.4 R73.01 E55.9 Z23 Office Visit 07/04/2017 3:00p [facility] Rossy Pavon M.D. 33338 I10 R73.01 N39.0 E78.4 Office Visit 04/25/2017 2:40p [facility] Rossy Pavon M.D. 26645 I10 R73.01 Office Visit 02/15/2017 8:00a [facility] Office OLIVIA Riggs 91671 R05 R14.3 Office Visit 09/22/2016 2:45p [facility] OLIVIA Riggs 29874 N39.0 Office Visit 08/22/2016 3:00p [facility] Rossy Pavon M.D. 42809 I10 Z23 Office Visit 07/11/2016 8:30a [facility] OLIVIA Riggs 27745 N39.0 Office Visit 07/05/2016 10:40a [facility] Rossy Pavon M.D. 64092 I10 E11.9 Office Visit 06/14/2016 3:20p [facility] Rossy Pavon M.D. 05452 E11.9 I10 E55.9 Office Visit 10/14/2015 2:40p [facility] Rossy Pavon M.D. 66456 I10 E11.9 E55.9 Office Visit 09/23/2015 1:15p [facility] Rossy Pavon M.D. 22589 I10 Office Visit 09/09/2015 3:20p [facility] Rossy Pavon M.D. 82421 I10 E11.9 Office Visit 07/27/2015 2:00p [facility] Rossy Pavon M.D. 68573 V70.0 401.9 272.4 250.00 268.9 V04.81 V03.82 Office Visit 07/08/2015 9:30a [facility] Rossy Pavon M.D. 69393 401.9 Office Visit 06/24/2015 9:30a [facility] Rossy Pavon M.D. 95879 401.9 995.89 272.4 790.21 268.9 Office Visit 03/27/2015 12:30p [facility] Office Lin Silver M.D. 31771 692.9 Office Visit 01/06/2015 9:20a [facility] Office Miller Pathak M.D. 02990 466.0 Office Visit 12/07/2014 9:15a [facility] Janine JulienbhartCARLITOSP 74783 599.0 401.9 Office Visit 08/25/2014 2:40p [facility] Rossy Pavon M.D. 67736 401.9 375.15 053.9 v04.81 Office Visit 06/26/2014 2:40p [facility] Rossy Pavon M.D. 91356 401.9 Office Visit 02/27/2014 10:00a [facility] Rossy Pavon M.D. 99218 V70.0 401.9 272.4 790.21 454.8 V06.5 v06.1 791.7 Office Visit 07/19/2013 10:00a [facility] Office Rossy Pavon M.D. 41348 401.9 V70.0 272.4 790.21 V03.82 Office Visit 12/26/2012 2:40p [facility] Rossy Pavon M.D. 45065 401.9 375.15 719.99 Office Visit 10/22/2012 11:20a [facility] Rossy Pavon M.D. 59667 401.1 375.15 454.8 v04.81 Office Visit 09/03/2012 9:40a [facility] Rossy Pavon M.D. 62536 401.9 Office Visit 07/16/2012 10:00a [facility] Office Rossy Pavon M.D. 23120 401.1 Office Visit 04/10/2012 10:40a [facility] Office Monisha Santacruz M.D. 75529 401.9 272.4 790.21 Office Visit 08/15/2011 1:40p [facility] Office Monisha Santacruz M.D. 67259 401.9 Office Visit 08/01/2011 9:00a [facility] Office Monisha Santacruz M.D. 80350 401.9 272.4 V04.81 V05.8 Office Visit 12/08/2010 1:00p [facility] Janine Robb, 74904 V70.0 MSarayDSaray V72.31 401.9 272.4 791.7 Office Visit 12/08/2009 9:20a [facility] Office Janine Robb M.D. 31845 401.9 375.15 Office Visit 08/17/2008 1:00p [facility] Office Janine Robb M.D. 74380 V04.81 791.7 401.9 V70.0 V72.31 V18.0 Office Visit 01/11/2008 9:20a [facility] Office Janine Robb M.D. 94549 401.9 528.2 701.1 454.8 524.60 Office Visit 01/14/2007 9:10a [facility] Office Janine Robb 62428 351.8 M.D. Office Visit 10/18/2006 10:30a [facility] Alyce Keith [facility] 76088 553.9 Office Visit 08/06/2006 1:40p [facility] Office Janine Robb 94812 789.00 MSarayDSaray 401.9 Plan of Care Future Appointment(s):08/01/2018 1:20 pm - Rossy Pavon M.D. at Main E[facility]4706/14/2018 - Rossy Pavon M.D.E11.9 Type 2 diabetes mellitus without complicationsComments:well controlled with food choices. You have nipped this in the bud.H04.123 Dry eye syndrome of bilateral lacrimal glandsComments:possibly due to diuretic. will d/c hydrochlorothiazide.I10 Essential (primary) hypertensionComments:d/c hydrochlorothiazide due to dry eye syndrome.will switch metoprolol back to atenolol. restart atenolol to 50 mg twice dailytake your blood 3-4 times a week, write it down and bring it in. goal is numbers less than 140/90.B35.1 Tinea unguiumComments:refer to slcxrobcX57.8 Other disturbances of skin sensationComments:will see if switch from metoprolol to atenolol helps with the numbness in your feet.AllNew Medication:Atenolol 50 mgComments:~B_~U_Medication Management~b_~u_ Patient Understands medications she's taking? Yes No Are there Barriers to Adherence? Yes No Has the patient been asked about herbal supplements and therapies, and OTC meds? Yes No ~B_~U_Care Plan~b_~u_1. Patient has been queried about patient's goals/preferences and functional/ lifestyle goals at relevant visits. If relevant, describe: na2. Treatment goals as explained to the patient: above3. Are there barriers to meeting treatment goals? Yes No If Yes, please describe:4. Self-Management goals as described to the patient: Yes No as above.
[2018-06-16] MEDS ORDERED: NS 0.9% 1000 ML* 1,000 ML IV ONE (03:24)
[2018-06-16] MEDS ORDERED: Meclizine TAB* 12.5 MG PO ONE (03:25)
[2018-06-16] MEDS ORDERED: Ketorolac INJ* 15 MG/ML 1 ML VIAL IV PUSH ONE (03:25)
--- NOTE | 2018-06-16 03:37 | ED ---
Dizziness - HPI Summary HPI Summary: This is swathi Dawson documenting for attending Dr. Omid Diana MD. Pt is 73 y/o F who presents to ED c/o waking up with dizziness around 2 am this morning. She describes the dizziness as vertigo-like and notes nausea. Symptoms are exacerbated with movement. Symptoms have improved since arriving to ED. - History Of Current Complaint Chief Complaint: EDDizziness Stated Complaint: DIZZINESS/VOMITTING Time Seen by Provider: 06/16/18 03:01 Hx Obtained From: Patient Onset/Duration: Still Present Character: Room Spinning, Dizzy Aggravating Factor(s): Other - Movement Associated Signs And Symptoms: Positive: Nausea - Allergies/Home Medications Allergies/Adverse Reactions: Allergies Allergy/AdvReac Type Severity Reaction Status Date / Time cephalexin Allergy Unknown Verified 06/16/18 03:08 Reaction Details ciprofloxacin Allergy Unknown Verified 06/16/18 03:08 Reaction Details Penicillins Allergy Unknown Verified 06/16/18 03:08 Reaction Details sulfamethoxazole Allergy Unknown Verified 06/16/18 03:08 Reaction Details Home Medications: Home Medications Lisinopril TAB* 10 mg PO DAILY 06/16/18 [History Confirmed 06/16/18] PMH/Surg Hx/FS Hx/Imm Hx Endocrine/Hematology History: Reports: Hx Diabetes - "Controlled diabetes" Cardiovascular History: Reports: Hx Hypertension - Cancer History Hx Chemotherapy: No Hx Radiation Therapy: No Infectious Disease History: No Infectious Disease History: Denies: Traveled Outside the [place] in Last 30 Days - Family History Known Family History: Positive: Hypertension, Diabetes - Social History Alcohol Use: None Substance Use Type: Reports: None Smoking Status (MU): Never Smoked Tobacco Review of Systems Positive: Nausea Neurological: Other - Dizziness All Other Systems Reviewed And Are Negative: Yes Physical Exam - Summary Physical Exam Summary: VITAL SIGNS: Reviewed. GENERAL: Patient is a well-developed and nourished female who is lying comfortable in the stretcher. Patient is not in any acute respiratory distress. HEAD AND FACE: No signs of trauma. No ecchymosis, hematomas or skull depressions. No sinus tenderness. EYES: PERRLA, EOMI x 2, No injected conjunctiva, no nystagmus. EARS: Hearing grossly intact. Ear canals and tympanic membranes are within normal limits. MOUTH: Oropharynx within normal limits. NECK: Supple, trachea is midline, no adenopathy, no JVD, no carotid bruit, no c- spine tenderness, neck with full ROM. CHEST: Symmetric, no tenderness at palpation LUNGS: Clear to auscultation bilaterally. No wheezing or crackles. CVS: Regular rate and rhythm, S1 and S2 present, no murmurs or gallops appreciated. ABDOMEN: Soft, non-tender. No signs of distention. No rebound no guarding, and no masses palpated. Bowel sounds are normal. EXTREMITIES: FROM in all major joints, no edema, no cyanosis or clubbing. NEURO: Alert and oriented x 3. No acute neurological deficits. Speech is normal and follows commands. SKIN: Dry and warm Triage Information Reviewed: Yes Vital Signs On Initial Exam: Initial Vitals Temp Pulse Resp BP Pulse Ox 96.8 F 63 16 168/71 99 06/16/18 02:30 06/16/18 02:30 06/16/18 02:30 06/16/18 02:30 06/16/18 02:30 Vital Signs Reviewed: Yes - [place] Coma Scale Best Eye Response: 4 - Spontaneous Best Motor Response: 6 - Obeys Commands Best Verbal Response: 5 - Oriented Coma Scale Total: 15 Diagnostics - Vital Signs Vital Signs Temp Pulse Resp BP Pulse Ox 06/16/18 03:32 64 187/99 98 06/16/18 03:29 61 178/89 98 06/16/18 03:26 59 151/82 99 06/16/18 03:14 59 98 06/16/18 03:12 59 175/89 98 06/16/18 03:11 61 176/93 96 06/16/18 02:30 96.8 F 63 16 168/71 99 - Laboratory Result Diagrams: 06/16/18 03:44 06/16/18 03:44 Lab Statement: Any lab studies that have been ordered have been reviewed, and results considered in the medical decision making process. - CT Brain CT CT Interpretation Completed By: Radiologist - Impression: No acute findings. ED Physician reviewed this report. - EKG 03:16 Cardiac Rate: NL - 60 bpm EKG Rhythm: Sinus Rhythm EKG Interpretation: RBBB Re-Evaluation - Re-Evaluation First Eval Re-Evaluation Time: 05:30 Change: Improved - Pt is feeling better. Can walk now without feeling dizzy. Second Eval Re-Evaluation Time: 05:45 - Blood pressure is down to 147/74. Dizzy Course/Dx - Course Course Of Treatment: Pt is 73 y/o F who presents to ED c/o waking up with dizziness around 2 am this morning. She describes the dizziness as vertigo-like and notes nausea. Symptoms are exacerbated with movement. Symptoms have improved since arriving to ED. Physical exam was normal. EKG taken at 03:16 showed sinus rhythm at 60 bpm with [address]B. Brain CT showed no acute findings. ED physician reviewed this report and agrees. In the ED course pt was given Antivert, Toradol, and fluids. At 05:30 pt was feeling better and was able to walk without feeling dizzy. at 05:45 pt's last blood pressure was down to 147/ 74. Pt was diagnosed with vertigo and discharged home with a prescription of Antivert. Pt is agreeable with this plan. - Diagnoses Provider Diagnoses: Vertigo Discharge - Sign-Out/Discharge Documenting (check all that apply): Patient Departure - Discharge - Discharge Plan Condition: Stable Disposition: HOME Prescriptions: Meclizine TAB* [Antivert 12.5 TAB*] 25 mg PO TID PRN #20 tab PRN Reason: Dizziness Patient Education Materials: Vertigo (ED) Referrals: Rossy Pavon MD [Primary Care Provider] - 2 Days Additional Instructions: RETURN TO ED FOR ANY NEW OR WORSENING SYMPTOMS.
[2018-06-16 03:59] LABS: ABS Basophils 0 10^3/ul (0-0.2); ABS Eosinophils 0.1 10^3/ul (0-0.6); ABS Lymphocytes 1.4 10^3/ul (1.0-4.8); ABS Monocytes 0.7 10^3/ul (0-0.8); ABS Neutrophils 6.3 10^3/ul (1.5-7.7); ABS Nucleated RBC 0 10^3/ul; Hematocrit 40 % (35-47); Hemoglobin 13.6 g/dl (12.0-16.0); Lymphocyte % 16.1 % (25-47); Mean Corpuscular HGB Conc 34 g/dl (31-36); Mean Corpuscular Hemoglobin 30 pg (27-31); Mean Corpuscular Volume 89 fL (80-97); Mean Platelet Volume 7.7 um3 (7.4-10.4); Nucleated Red Blood Cells % 0; Platelet Count 241 10^3/ul (150-450); Red Blood Count 4.45 10^6/ul (4.00-5.40); Red Cell Distribution Width 13 % (10.5-15); White Blood Count 8.4 10^3/ul (3.5-10.8)
[2018-06-16 04:04] LABS: INR 0.94 (0.77-1.02)
[2018-06-16 04:15] LABS: EGFR Non-African American 89.3 (>60)
[2018-06-16 06:06] VITALS: BP 168/81
--- NOTE | 2018-06-16 09:22 | RAD ---
Indication: Vertigo. CT of the brain was performed without IV contrast. Ventricular structures are midline. No midline shift is noted. The extra-axial spaces are unremarkable. There is no evidence of intracranial mass or hemorrhage. No other high or low density lesions are identified. Mastoid air cells and paranasal sinuses are otherwise unremarkable. IMPRESSION: No intracranial mass or hemorrhage is noted.
== END 2018-06-16 06:06 | disposition home or self-care (01) ==
LOC: ED 02:29
DX: R42 Dizziness and giddiness (principal); R11.0 Nausea; Z88.0 Allergy status to penicillin
CPT/HCPCS: 36415; 70450; 80053; 83735; 85025; 85610; 85730; 93005; 96374; 99284; A9270-GY; J1885